=== PATIENT | female | born 1985 | race Hispanic/Latino ===

== ENCOUNTER 2018-09-08 11:43 | Emergency (ER) | payer SELFPAY ==
--- OUTSIDE RECORDS SUMMARY | 2018-09-08 11:45 | XMS REPORT ---
:1985 [facility] Organization [facility] Address [address] [place] [address] [address] [place] [address] Care Team Providers Name Role Phone Unavailable Unavailable Unavailable Problems This patient has no known problems. Allergies, Adverse Reactions, Alerts This patient has no known allergies or adverse reactions. Medications This patient has no known medications.
--- NOTE | 2018-09-08 13:06 | RAD REPORT ---
EXAM DESCRIPTION: US - Abdomen Exam Limited - 09/08/2018 12:57 pm COMPARISON: None. FINDINGS: No mobile gallstones identified. There is several small 5 mm or less echogenic foci adhere nt to the gallbladder wall. No posterior acoustic enhancement or shadowing. No comet tail artifacts s een. There is no wall thickening or pericholecystic fluid. No common duct stone or biliary tree dilatation identified. IMPRESSION: No gallstones confirmed. No acute gallbladder or biliary tree finding. Small 5 mm or less echogenic foci are believed to be small polyps.
[2018-09-08] MEDS ORDERED: FAMOTIDINE 20 MG/2 ML VIAL IV ONE (13:35)
[2018-09-08] MEDS ORDERED: NA CHLORIDE 0.9% 1,000 ML ONE (13:35)
[2018-09-08] MEDS ORDERED: KETOROLAC 30 MG/ML INJ ONE (13:35)
[2018-09-08] MEDS ORDERED: ONDANSETRON 4 MG/2 ML VIAL ONE (13:35)
[2018-09-08 13:42] LABS: Absolute Lymphocytes (CBC) 1.6 K/uL (0.7-4.9); Basophils % 0.4 % (0-1.3); Eosinophils % 0.3 % (0-4.4); Hematocrit 41.7 % (36.0-45.0); Lymphocytes % 13.5 % (15.3-44.8); MPV 8.6 fL (7.6-11.3); RBC Red Blood Cell Count 4.71 M/uL (3.86-4.86)
[2018-09-08 13:59] LABS: ALT/SGPT 80 U/L (12-78); AST/SGOT 70 U/L (15-37); Albumin 3.9 g/dL (3.4-5.0); Alkaline Phosphatase 311 U/L (45-117); BUN Blood Urea Nitrogen 6 mg/dL (7-18); Bicarbonate 27 mmol/L (21-32); Bilirubin Direct 0.2 mg/dL (0-0.2); Bilirubin Total 0.5 mg/dL (0.2-1.0); Glucose Level 91 mg/dL (74-106); Lipase 7918 U/L (73-393); Potassium 3.4 mmol/L (3.5-5.1); Protein, Total 9.3 g/dL (6.4-8.2); Sodium Level 137 mmol/L (136-145)
[2018-09-08 14:47] LABS: Urine Bacteria 20-50 /HPF (<20); Urine Culture Reflex Order REFLEXED; Urine RBC <5 /HPF (NONE SEEN)
[2018-09-08 14:49] LABS: Urine Blood TRACE (NEG); Urine Glucose NEGATIVE (NEG); Urine Protein 1+ (NEG); Urine Specific Gravity 1.015 (1.005-1.030); Urine pH 7.5 (5.0-7.0)
--- NOTE | 2018-09-08 15:29 | RAD REPORT ---
EXAM DESCRIPTION: CTAbdomen Pelvis W Contrast - 09/08/2018 3:21 pm CLINICAL HISTORY: Abdominal pain. ABD PAIN COMPARISON: No comparisonsAbdomen Exam Limited dated 09/08/2018 TECHNIQUE: Biphasic CT imaging of the abdomen and pelvis was performed with 100 ml non-ionic IV cont rast. All CT scans are performed using dose optimization technique as appropriate and may include automated exposure control or mA/KV adjustment according to patient size. FINDINGS: The lung bases are clear. The liver, spleen, pancreas, adrenal glands and kidneys are within normal limits. No bowel obstruction, free air, free fluid or abscess. The appendix is not identified as a discrete structure, however, no secondary findings of appendicitis are identified. No evidence of significan t lymphadenopathy. No suspicious bony findings. IMPRESSION: No acute intra-abdominal or pelvic finding.
--- NOTE | 2018-09-08 15:39 | EDPHYS ---
Physician Documentation [facility] Name: Gabby Aguilar Age: 33 yrs Sex: Female : 1985 Arrival Date: 09/08/2018 Time: 11:47 Bed 13 Private MD: ED Physician Efe Martinez HPI: 09/08 14:32 This 33 yrs old Female presents to ER via Ambulatory with complaints of kb Abdominal Pain. 14:32 The patient presents with abdominal pain that is diffuse. Onset: The symptoms/episode kb began/occurred 5 day(s) ago. The symptoms do not radiate. Associated signs and symptoms: Pertinent positives: nausea, vomiting, and diarrhea. The symptoms are described as constant. Modifying factors: The symptoms are alleviated by nothing, the symptoms are aggravated by nothing. Severity of pain: At its worst the pain was moderate in the emergency department the pain is unchanged. The patient has not experienced similar symptoms in the past. The patient has been recently seen by a physician: the patient's primary care provider, yesterday, with similar presenting complaints, and was sent to the [facility] Emergency Department for further evaluation. Pt reports she started having abd pain, n/v/d on Friday. Diarrhea stopped yesterday, but continues to have pain,n/v. Went to the clinic in [place] today and was told it was either her gallbladder or appendix so she needed to come to the ER. 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 - Social history:: Smoking status: Patient/guardian denies using tobacco. - Ebola Screening: : Patient denies travel to an Ebola-affected area in the 21 days before illness onset. ROS: 14:28 Constitutional: Negative for fever, chills, and weight loss, Cardiovascular: Negative kb for chest pain, palpitations, and edema, Respiratory: Negative for shortness of breath, cough, wheezing, and pleuritic chest pain, Back: Negative for injury and pain, : Negative for injury, bleeding, discharge, and swelling, MS/Extremity: Negative for injury and deformity, Skin: Negative for injury, rash, and discoloration, Neuro: Negative for headache, weakness, numbness, tingling, and seizure. 14:31 Abdomen/GI: Positive for abdominal pain, nausea, vomiting, and diarrhea. kb Exam: 14:27 Constitutional: This is a well developed, well nourished patient who is awake, alert, kb and in no acute distress. Head/Face: Normocephalic, atraumatic. Chest/axilla: Normal chest wall appearance and motion. Nontender with no deformity. No lesions are appreciated. Cardiovascular: Regular rate and rhythm with a normal S1 and S2. No gallops, murmurs, or rubs. Normal PMI, no JVD. No pulse deficits. Respiratory: Lungs have equal breath sounds bilaterally, clear to auscultation and percussion. No rales, rhonchi or wheezes noted. No increased work of breathing, no retractions or nasal flaring. Back: No spinal tenderness. No costovertebral tenderness. Full range of motion. Skin: Warm, dry with normal turgor. Normal color with no rashes, no lesions, and no evidence of cellulitis. MS/ Extremity: Pulses equal, no cyanosis. Neurovascular intact. Full, normal range of motion. Neuro: Awake and alert, GCS 15, oriented to person, place, time, and situation. Cranial nerves II-XII grossly intact. Motor strength 5/5 in all extremities. Sensory grossly intact. Cerebellar exam normal. Normal gait. 14:27 Abdomen/GI: Inspection: abdomen appears normal, Bowel sounds: normal, in all quadrants, Palpation: soft, in all quadrants, moderate abdominal tenderness, in the right upper quadrant, left upper quadrant, right lower quadrant and left lower quadrant. Vital Signs: 11:50 BP 160 / 90; Pulse 71; Resp 18; Temp 98.0; Pulse Ox 100% on R/A; Weight 95.25 kg (R); aj1 Height 5 ft. 3 in. (160.02 cm) (R); Pain 8/10; 13:30 BP 145 / 99; Pulse 49; Resp 18; Temp 97.8(TE); Pulse Ox 100% on R/A; mh5 14:21 BP 157 / 92; Pulse 61; Resp 18; Temp 97.8(TE); Pulse Ox 100% ; mh5 15:20 BP 168 / 99; Pulse 66; Resp 17; Temp 98.3(O); Pulse Ox 100% on R/A; Pain 0/10; rb1 16:00 BP 146 / 86; Pulse 57; Resp 16; Temp 98.1(O); Pulse Ox 98% on R/A; Pain 0/10; rb1 11:50 Body Mass Index 37.20 (95.25 kg, 160.02 cm) aj1 MDM: 13:00 Patient medically screened. kb 14:27 Data reviewed: vital signs, nurses notes. Data interpreted: Pulse oximetry: on room air kb is 100 %. Interpretation: normal. 15:34 Counseling: I had a detailed discussion with the patient and/or guardian regarding: the kb historical points, exam findings, and any diagnostic results supporting the discharge/admit diagnosis, lab results, radiology results, the need for outpatient follow up, a family practitioner, a telephone interviewer, to return to the emergency department if symptoms worsen or persist or if there are any questions or concerns that arise at home. ED course: Pt has no pain at this time. Able to tolerate PO intake. Comfortable with going home and will return if needed. Pt will follow up with GI. 09/08 13:08 Order name: Basic Metabolic Panel; Complete Time: 14:06 kb 09/08 13:08 Order name: CBC with Diff; Complete Time: 13:54 kb 09/08 13:08 Order name: Hepatic Function; Complete Time: 14:06 kb 09/08 13:08 Order name: Lipase; Complete Time: 14:06 kb 09/08 13:37 Order name: Urine Microscopic Only; Complete Time: 14:51 kb 09/08 13:45 Order name: Urine Dipstick--Ancillary (enter results); Complete Time: 14:51 ag 09/08 12:44 Order name: US Abdomen Limited; Complete Time: 13:08 kb 09/08 13:12 Order name: CT Abd/Pelvis - PO and IV Contrast; Complete Time: 15:31 kb 09/08 13:45 Order name: Urine --Ancillary (enter results); Complete Time: 14:51 ag 09/08 14:50 Order name: Urine Culture EDMS 09/08 13:08 Order name: IV Saline Lock; Complete Time: 13:48 kb 09/08 13:08 Order name: Labs collected and sent; Complete Time: 13:48 kb 09/08 13:13 Order name: Urine Test (obtain specimen); Complete Time: 13:45 kb 09/08 13:13 Order name: Urine Dipstick-Ancillary (obtain specimen); Complete Time: 13:45 kb Administered Medications: 13:30 Drug: NS 0.9% 1000 ml Route: IV; Rate: 1000 ml; Site: right antecubital; rb1 14:38 Follow up: IV Status: Completed infusion rb1 13:30 Drug: Zofran 4 mg Route: IVP; Site: right antecubital; rb1 13:45 Follow up: Response: No adverse reaction; Nausea is decreased rb1 13:30 Drug: TORadol 30 mg Route: IVP; Site: right antecubital; rb1 13:45 Follow up: Response: No adverse reaction; Pain is decreased rb1 13:30 Drug: Pepcid 20 mg Route: IVP; Site: right antecubital; rb1 13:45 Follow up: Response: No adverse reaction rb1 Disposition: 17:10 Co-signature as Attending Physician, Efe Martinez MD. rn Disposition: 09/08/18 15:38 Discharged to Home. Impression: Acute pancreatitis, unspecified. - Condition is Stable. - Discharge Instructions: Acute Pancreatitis, [id number]. - Prescriptions for Tylenol- Codeine #3 300-30 mg Oral Tablet - take 1 tablet by ORAL route every 6 hours As needed; 15 tablet. Zofran 4 mg Oral Tablet - take 1 tablet by ORAL route every 6 hours As needed; 20 tablet. - Medication Reconciliation Form, Thank You Letter, Antibiotic Education, Prescription Opioid Use, Work release form form. - Follow up: Emergency Department; When: As needed; Reason: Worsening of condition. Follow up: Private Physician; When: 2 - 3 days; Reason: Recheck today's complaints, Continuance of care, Re-evaluation by your physician. Signatures: Dispatcher [employer] Ericka Velasco, YARA-C COLLEGE SCOUTING COORDINATOR-CkKrysta Manuel RN RN aj1 Efe Martinez MD MD rn Barber, Rebecca, RN RN rb1 Corrections: (The following items were deleted from the chart) 14:32 14:28 Constitutional: Negative for fever, chills, and weight loss, Cardiovascular: kb Negative for chest pain, palpitations, and edema, Respiratory: Negative for shortness of breath, cough, wheezing, and pleuritic chest pain, kb 16:14 15:38 09/08/2018 15:38 Discharged to Home. Impression: Acute pancreatitis, unspecified. rb1 Condition is Stable. Forms are Medication Reconciliation Form, Thank You Letter, Antibiotic Education, Prescription Opioid Use. Follow up: Emergency Department; When: As needed; Reason: Worsening of condition. Follow up: Private Physician; When: 2 - 3 days; Reason: Recheck today's complaints, Continuance of care, Re-evaluation by your physician. kb
--- NOTE | 2018-09-08 15:39 | ER ---
Nurse's Notes [facility] Name: Gabby Aguilar Age: 33 yrs Sex: Female : 1985 Arrival Date: 09/08/2018 Time: 11:47 Bed 13 Private MD: Diagnosis: Acute pancreatitis, unspecified Presentation: 09/08 11:48 Presenting complaint: Patient states: Epigastric pain since yesterday that's worse when aj1 she eats. Reports N/V. Denies diarrhea. Transition of care: patient was not received from another setting of care. Onset of symptoms was September 07, 2018. Risk Assessment: Do you want to hurt yourself or someone else? Patient reports no desire to harm self or others. Initial Sepsis Screen: Does the patient meet any 2 criteria? No. Patient's initial sepsis screen is negative. Does the patient have a suspected source of infection? Yes: Acute abdominal pain. Care prior to arrival: None. 11:48 Method Of Arrival: Ambulatory aj1 11:48 Acuity: MIKEL 3 aj1 Triage Assessment: 11:50 General: Appears in no apparent distress. uncomfortable, Behavior is calm, cooperative, aj1 appropriate for age. Pain: Complains of pain in epigastric area Pain currently is 8 out of 10 on a pain scale. Neuro: Level of Consciousness is awake, alert, obeys commands. Cardiovascular: Patient's skin is warm and dry. Respiratory: Airway is patent Respiratory effort is even, unlabored, Respiratory pattern is regular, symmetrical. GI: Reports upper abdominal pain. 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 - Social history:: Smoking status: Patient/guardian denies using tobacco. - Ebola Screening: : Patient denies travel to an Ebola-affected area in the 21 days before illness onset. Screenin:00 Abuse screen: Denies threats or abuse. Nutritional screening: No deficits noted. rb1 Tuberculosis screening: No symptoms or risk factors identified. Fall Risk None identified. Assessment: 13:00 General: Appears uncomfortable, Behavior is calm, cooperative. Pain: Complains of pain rb1 in abdomen Pain currently is 8 out of 10 on a pain scale. Neuro: Level of Consciousness is awake, alert, obeys commands, Oriented to person, place, time, situation. Cardiovascular: Capillary refill < 3 seconds is brisk in bilateral fingers. Respiratory: Airway is patent Respiratory effort is even, unlabored, Respiratory pattern is regular, symmetrical. Derm: Skin is pink, warm \T\ dry. 13:00 GI: Bowel sounds present X 4 quads. Abd is soft Reports nausea, vomiting. : No signs rb1 and/or symptoms were reported regarding the genitourinary system. Musculoskeletal: Range of motion: intact in all extremities. 14:00 Reassessment: Patient appears in no apparent distress at this time. Patient and/or rb1 family updated on plan of care and expected duration. Pain level reassessed. Patient is alert, oriented x 3, equal unlabored respirations, skin warm/dry/pink. 15:00 Reassessment: Patient appears in no apparent distress at this time. Pt. resting with rb1 eyes, closed. Respirations even, unlabored. Call light within reach. 15:43 Reassessment: Patient appears in no apparent distress at this time. Patient and/or rb1 family updated on plan of care and expected duration. Pain level reassessed. Patient is alert, oriented x 3, equal unlabored respirations, skin warm/dry/pink. Pt. requested that the lights be turned off so she can sleep. Vital Signs: 11:50 BP 160 / 90; Pulse 71; Resp 18; Temp 98.0; Pulse Ox 100% on R/A; Weight 95.25 kg (R); aj1 Height 5 ft. 3 in. (160.02 cm) (R); Pain 8/10; 13:30 BP 145 / 99; Pulse 49; Resp 18; Temp 97.8(TE); Pulse Ox 100% on R/A; mh5 14:21 BP 157 / 92; Pulse 61; Resp 18; Temp 97.8(TE); Pulse Ox 100% ; mh5 15:20 BP 168 / 99; Pulse 66; Resp 17; Temp 98.3(O); Pulse Ox 100% on R/A; Pain 0/10; rb1 16:00 BP 146 / 86; Pulse 57; Resp 16; Temp 98.1(O); Pulse Ox 98% on R/A; Pain 0/10; rb1 11:50 Body Mass Index 37.20 (95.25 kg, 160.02 cm) aj1 ED Course: 11:47 Patient arrived in ED. mr 11:50 Triage completed. aj1 11:50 Arm band placed on Patient placed in waiting room, Patient notified of wait time. aj1 12:00 [facility]C [facility]. kb 12:00 Efe Martinez MD is Attending Physician. kb 13:00 Patient has correct armband on for positive identification. Placed in gown. Bed in low rb1 position. Call light in reach. Side rails up X 1. Pulse ox on. NIBP on. Warm blanket given. 13:01 Alda Lomeli, KIRT is Primary Nurse. rb1 13:04 US Abdomen Limited In Process Unspecified. EDMS 13:25 Inserted saline lock: 18 gauge in right antecubital area, using aseptic technique. rb1 ,using aseptic technique. Inserted by KIRT Tirado. Blood collected. 15:21 CT Abd/Pelvis - PO and IV Contrast In Process Unspecified. EDMS 16:14 No provider procedures requiring assistance completed. IV discontinued, intact, rb1 bleeding controlled, No redness/swelling at site. Pressure dressing applied. Administered Medications: 13:30 Drug: NS 0.9% 1000 ml Route: IV; Rate: 1000 ml; Site: right antecubital; rb1 14:38 Follow up: IV Status: Completed infusion rb1 13:30 Drug: Zofran 4 mg Route: IVP; Site: right antecubital; rb1 13:45 Follow up: Response: No adverse reaction; Nausea is decreased rb1 13:30 Drug: TORadol 30 mg Route: IVP; Site: right antecubital; rb1 13:45 Follow up: Response: No adverse reaction; Pain is decreased rb1 13:30 Drug: Pepcid 20 mg Route: IVP; Site: right antecubital; rb1 13:45 Follow up: Response: No adverse reaction rb1 Outcome: 15:38 Discharge ordered by . kb 16:14 Patient left the ED. rb1 16:14 Discharged to home ambulatory. rb1 16:14 Condition: stable 16:14 Discharge instructions given to patient, Instructed on discharge instructions, follow up and referral plans. medication usage, Demonstrated understanding of instructions, follow-up care, medications, Prescriptions given X 2. Signatures: Dispatcher [employer] Ericka Velasco, YARA-C YARA-Krytsa Gibbs RN RN aj1 Candice Israel Rebecca, RN RN rb1 Megan Barnard [facility]
== END 2018-09-08 16:14 | disposition home or self-care (01) ==
LOC: ER 11:43
DX: K85.90 Acute pancreatitis without necrosis or infection, unspecified (principal)
CPT/HCPCS: 36415; 74177; 76705; 80048; 80076; 81003; 81015; 81025; 83690; 85025; 87086; 87088; 96361; 96374; 96375; 99284; J2405; J7030; Q9967

== ENCOUNTER 2018-10-20 19:54 | Emergency (ER) | payer SELFPAY ==
--- OUTSIDE RECORDS SUMMARY | 2018-10-20 19:55 | XMS REPORT | Summary of Care ---
:1985 Author Organization [facility] - Health Address [address] [place] [address] Care Team Providers Name Role Phone Radu Lezama Primary Care Provider Encounter Details Date Type Department Care Team Description 10/19/2018 Orders Only [facility] Doctor Unassigned, No [address] [facility] [place] Name [place] [id number] [address] [place] [phone] Allergies No Known Allergiesdocumented as of this encounter (statuses as of 10/19/2018) Medications Medication Sig Dispensed Refills Start Date End Date Status norgestimate-ethinyl Take 1 tablet by 1 Package 2 06/16/2018 Active estradiol (ORTHO mouth daily. TRI-CYCLEN, 28,) 0.18/0.215/0.25 mg-35 mcg (28) tabletIndications: Encounter for other contraceptive management documented as of this encounter (statuses as of 10/19/2018) Active Problems Problem Noted Date Vaginal irritation 07/30/2018 Well woman exam 06/16/2018 Irregular menses 06/16/2018 Amenorrhea, secondary 12/29/2014 Overview: TSH, Prolactin normal: Obese 01/05/2015- Provera challenge and BBT chart Morbid obesity 08/11/2014 documented as of this encounter (statuses as of 10/19/2018) Resolved Problems Problem Noted Date Resolved Date Encounter for routine gynecological examination 08/11/2014 06/16/2018 Overview: ICD10 Diagnosis Term Nurse Transitional Utility Screening for STD (sexually transmitted disease) 08/11/2014 06/16/2018 Family planning counseling 08/11/2014 12/29/2014 Need for Tdap vaccination 08/11/2014 06/16/2018 Tobacco use disorder 08/11/2014 12/29/2014 documented as of this encounter (statuses as of 10/19/2018) Immunizations Name Administration Dates Next Due Tdap 08/11/2014 documented as of this encounter Social History Tobacco Use Types Packs/Day Years Used Date Former Smoker Quit: 08/11/2014 Smokeless Tobacco: Never Used Comments: social smoker Alcohol Use Drinks/Week oz/Week Comments Yes 0 Standard drinks or equivalent 0.0 socially Sex Assigned at Date Recorded Not on file Job Start Date Occupation Industry Not on file Not on file Not on file Travel History Travel Start Travel End No recent travel history available. documented as of this encounter Last Filed Vital Signs Not on filedocumented in this encounter Plan of Treatment Health Maintenance Due Date Last Done Comments VARICELLA VACCINES (1 of 2 - 07/21/2000 13+ 2-dose series) INFLUENZA VACCINE 11/15/2018 PAP SMEAR 06/16/2021 06/16/2018, 08/11/2014 DTaP,Tdap,and Td Vaccines (2 08/11/2024 08/11/2014 - Td) PNEUMOCOCCAL 0-64 YEARS Aged Out No longer eligible based COMBINED SERIES on patient's age to complete this topic documented as of this encounter Procedures Procedure Name Priority Date/Time Associated Diagnosis Comments NO SHOW OR MISSED Routine 10/19/2018 2:40 PM APPOINTMENT POLICY CDT ACKNOWLEDGEMENT documented in this encounter Results Not on filedocumented in this encounter Insurance Payer Benefit Plan Subscriber ID Effective Phone Address Type / Group Dates [facility] xxxxxxxxx 2018-Kana [phone] Medicaid WOMEN [address] [place] [address] documented as of this encounter Advance Directives Name Relationship Healthcare Agent Relationship Communication Sakshi Arriola Sibling Primary healthcare agent
--- OUTSIDE RECORDS SUMMARY | 2018-10-20 19:55 | XMS REPORT ---
:1985 [facility] Address [address] [place] [address] Care Team Providers Name Role Phone Unavailable Unavailable Unavailable Problems This patient has no known problems. Allergies, Adverse Reactions, Alerts This patient has no known allergies or adverse reactions. Medications This patient has no known medications.
--- OUTSIDE RECORDS SUMMARY | 2018-10-20 19:56 | XMS REPORT | Summary of Care ---
:1985 Author Organization [facility] Address [address] [place] [address] Care Team Providers Name Role Phone Radu Lezama Primary Care Provider Reason for Visit Reason Comments New OB Visit Encounter Details Date Type Department Care Team Description 10/19/2018 Initial [facility] RMP- Edie Hobbs High risk , antepartum (Primary Dx); Visit YARA Gonzalez BMI 36.0-36.9,adult; [address] Obesity affecting in first trimester; [place], [place] Shaun A Elevated blood pressure reading without diagnosis of hypertension; [address] [place], [place] Cramping affecting , antepartum [phone] Allergies No Known Allergiesdocumented as of this encounter (statuses as of 10/19/2018) Medications Medication Sig Dispensed Refills Start Date End Date Status norgestimate-ethinyl Take 1 tablet 1 Package 2 06/16/2018 10/19/2018 Discontinued estradiol (ORTHO by mouth TRI-CYCLEN, 28,) daily. 0.18/0.215/0.25 mg-35 mcg (28) tabletIndications: Encounter for other contraceptive management documented as of this encounter (statuses as of 10/19/2018) Active Problems Problem Noted Date High risk , antepartum 10/19/2018 Obesity affecting in first trimester 10/19/2018 Elevated blood pressure reading without diagnosis of hypertension 10/19/2018 Cramping affecting , antepartum 10/19/2018 Irregular menses 06/16/2018 Morbid obesity 08/11/2014 Estimated Date of Delivery Comments Yes 06/22/2019 Based on last menstrual period of 09/15/2018 (Exact Date) documented as of this encounter (statuses as of 10/19/2018) Resolved Problems Problem Noted Date Resolved Date Vaginal irritation 07/30/2018 10/19/2018 Well woman exam 06/16/2018 10/19/2018 Amenorrhea, secondary 12/29/2014 10/19/2018 Overview: TSH, Prolactin normal: Obese 01/05/2015- Provera challenge and BBT chart Encounter for routine gynecological examination 08/11/2014 06/16/2018 Overview: ICD10 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 Never 10/19/2018 How many drinks containing alcohol do you have on a typical Not asked day when you are drinking? How often do you have six or more drinks on one occasion? Not asked Estimated Date of Delivery Comments Yes 06/22/2019 Based on last menstrual period of 09/15/2018 (Exact Date) Sex Assigned at Date Recorded Not on file Job Start Date Occupation Industry Not on file Not on file Not on file Travel History Travel Start Travel End No recent travel history available. documented as of this encounter Last Filed Vital Signs Vital Sign Reading Time Taken Comments Blood Pressure 127/86 10/19/2018 3:20 PM CDT Pulse 78 10/19/2018 3:19 PM CDT Temperature 36.8 C (98.2 F) 10/19/2018 3:19 PM CDT Respiratory Rate 16 10/19/2018 3:19 PM CDT Oxygen Saturation - - Inhaled Oxygen Concentration - - Weight 94.5 kg (208 lb 4 oz) 10/19/2018 3:19 PM CDT Height 160 cm (5' 3") 10/19/2018 3:19 PM CDT Body Mass Index 36.89 10/19/2018 3:19 PM CDT documented in this encounter Progress Notes Edie Hobbs, STAFF NURSE MIDWIFE - 10/19/2018 2:30 PM CDT Chief complaint: Chief Complaint Patient presents with New OB Visit CC: Initial Visit Gabby Aguilar is a 33 year old, , /White female. Patient 's last menstrual period was 09/15/2018 (exact date). She is 4w6d with a suspected intrauterine . Her Estimated Date of Delivery: 06/22/19. She is being seen today for her first obstetrical visit. She has no complaints today. She is experiencing some mild cramping that comes and goes. She denies vaginal bleeding, nausea or vomiting. Denies current physical, emotional or sexual abuse. Patient denies recent foreign travel. OB History T0 L0 SAB0 TAB0 Ectopic0 Multiple0 Live Births0 Name of Baby 1: Not recorded Date: Not recorded GA: Not recorded Delivery: Not recorded Apgar1: Not recorded Apgar5: Not recorded Living: Not recorded Histories OB History Para Term AB Living 1 0 0 0 0 0 SAB TAB Ectopic Multiple Live Births 0 0 0 0 # Outcome Date GA Lbr David/2nd Weight Sex Delivery Anes PTL Lv 1 Current Past Medical History: Diagnosis Date Irregular menses 06/16/2018 Menstrual disorder irregular menses Other nonspecific abnormal finding 2011 STD (sexually transmitted disease) 2011 chlamydia, treated Family History Problem Relation Age of Onset Hypertension Father Diabetes Maternal Aunt Diabetes Mother No Significant Medical Problems Sister Diabetes Brother Diabetes Maternal Uncle No Significant Medical Problems Paternal Aunt Hypertension Paternal Uncle Heart Maternal Grandmother Heart Maternal Grandfather Hypertension Paternal Grandmother Arthritis Paternal Grandmother Asthma NoFHx defects NoFHx Breast Cancer NoFHx Colon Cancer NoFHx Ovarian Cancer NoFHx Uterine Cancer NoFHx Cancer NoFHx Depression NoFHx Genetic NoFHx High cholesterol NoFHx Mental retardation NoFHx Neurological NoFHx Osteoporosis NoFHx Psychiatry NoFHx Family Status Relation Name Status Fa Alive MAunt Alive Mo Alive Sis Alive Bro Alive MUnc Alive PAunt Alive PUnc Alive MGMo MGFa PGMo Alive PGFa NoFHx (Not Specified) History reviewed. No pertinent surgical history. Social History Socioeconomic History Marital status: Spouse name: Not on file Number of children: Not on file Years of education: Not on file Highest education level: Not on file Occupational History Not on file Social Needs Financial resource strain: Not on file Food insecurity: Worry: Not on file Inability: Not on file Transportation needs: Medical: Not on file Non-medical: Not on file Tobacco Use Smoking status: Former Smoker Last attempt to quit: 08/11/2014 Years since quittin.1 Smokeless tobacco: Never Used Tobacco comment: social smoker Substance and Sexual Activity Alcohol use: Not Currently Alcohol/week: 0.0 oz Frequency: Never Comment: socially Drug use: No Sexual activity: Yes Partners: Male control/protection: None Comment: last sexual intercourse 10/18/2018 Lifestyle Physical activity: Days per week: Not on file Minutes per session: Not on file Stress: Not on file Relationships Social connections: Talks on phone: Not on file Gets together: Not on file Attends rastafarian service: Not on file Active member of club or organization: Not on file Attends meetings of clubs or organizations: Not on file Relationship status: Not on file Intimate partner violence: Fear of current or ex partner: Not on file Emotionally abused: Not on file Physically abused: Not on file Forced sexual activity: Not on file Other Topics Concern Not on file Social History Narrative Mu-Ism preference none. Patient lives alone. Patient has 1 dog. Social History Substance and Sexual Activity Sexual Activity Yes Partners: Male control/protection: None Comment: last sexual intercourse 10/18/2018 Genetic Screen Autism / Mental Retardation: No Kana Disease: No Congenital Heart Defect: No Cystic Fibrosis: No Down Syndrome: No Familial Dysautonomia: No Hemophilia or other Blood Disorders: No [place] Chorea: No Maternal Metabolic Disorder--specify (eg. Type 1 Diabetes, PKU): No Muscular Dystrophy: No Neural Tube Defect: No Recurrent Loss or a Stillbirth: No Sickle Cell Disease or Trait: No Cruz Sachs: No Teratological Substances (specify type & strength/dose) since LMP: No Thalassemia: No Other Inherited Genetic or Chromosomal Disorder (specify): No No Significant History of Genetic Disorders: No Significant History of Genetic Disorders Labs I have reviewed the patient's labs. and Labs are pending. Radiology Radiology pending. Allergies Gabby has No Known Allergies. Medications Gabby currently has no medications in their medication list. Review of Systems Constitutional: Negative. Negative for appetite change, fatigue and fever. HENT: Negative. Eyes: Negative. Negative for visual disturbance. Respiratory: Negative. Breasts: Negative. Cardiovascular: Negative. Negative for palpitations and leg swelling. Gastrointestinal: Negative. Negative for abdominal pain, constipation, diarrhea , nausea and vomiting. Genitourinary: Negative. Negative for dysuria, vaginal bleeding, vaginal discharge and pelvic pain. Musculoskeletal: Negative. Skin: Negative. Negative for rash. Neurological: Negative. Negative for dizziness, light-headedness and headaches. Psychiatric/Behavioral: Negative. Endocrine: Endocrine negative BP 127/86 (BP Location: Left arm, Patient Position: Sitting, BP CUFF SIZE: Adult Large) | Pulse 78| Temp 36.8 C (98.2 F) (Oral) | Resp 16 | Ht 5' 3 " (1.6 m) | Wt 208 lb 4 oz (94.5 kg) | LMP 09/15/2018 (Exact Date) | BMI 36.89 kg/m Pregravid BMI: 36.3 Physical Exam Vitals reviewed. Constitutional: She is oriented to person, place, and time. She appears well- developed and well-nourished. Her body habitus is obese. See flowsheet Neck: No thyroid nodules and no thyromegaly palpated. Cardiovascular: Regular rate and rhythm. No murmur auscultated. No peripheral edema present. Pulmonary/Chest: Breath sounds clear to auscultation. Normal inspiratory effort. Abdominal: Abdomen is soft. No mass palpated. No tenderness present. There is no hepatosplenomegaly. Neuro/Psychiatric: She has a normal mood and affect. She is oriented to person, place, and time. Skin: Skin normal. No lesion and no rash present. Genitourinary Comments: Patient friend remains in room during physical exam per patient preference Breast: Right breast exhibits no mass, no nipple discharge and no tenderness. Left breast exhibits no mass, no nipple discharge and no tenderness. Normal left breast and normal right breast External genitalia: Normal external genitalia appropriate for age. No labial lesion. Bladder: No tenderness. Normal bladder Vagina:Normal vagina. No lesion inspected. No abnormal vaginal discharge found. Cervix: Normal cervix. No lesion. No tenderness and no discharge present. Uterus: Uterus is normal size, normal position and non-tender. Normal uterus Adnexa: Right adnexa without tenderness. Left adnexa without tenderness. Normal left adnexa and normal right adnexa PHYSICAL: General Exam: HEENT: Normal Thyroid: Normal Lymph Node: Normal Neurological: Normal Heart: Normal Lungs: Normal Breasts: Normal Abdomen: Normal Skin: Normal Extremities: Normal Pelvic Exam: Vulva: Normal Vagina: Normal Cervix: Normal SVE closed/thick/high Membrane status: Intact Uterus: 4 Weeks Adnexa: Normal Rectum: Normal Spines: Average Subpubic Arch: Normal Assessment/Plan 1. High risk , antepartum 4w6d TWG discussed Discussed use of Deet Repellent Initiate Vitamins Increase Fluid Intake. Minimum of 8 water bottles daily. Will order dating US when insurance active - POCT TEST - POCT URINALYSIS W/O SPECIFIC GRAVITY - GLUCOSE 1 HOUR POST PRANDIAL - CBC WITH DIFF - GC & CHLAMYDIA AMPLIFIED ASSAY - HEPATITIS B SURFACE ANTIGEN - HIV 1/2 AG-AB WITH REFLEX - WORKUP, BLOOD BANK - RUBELLA SCREEN (KEEGAN) IGG - GALV ONLY - SYPHILIS IGG/IGM - URINE CULTURE - VZV ANTIBODY SCREEN - POCT URINALYSIS W/O SPECIFIC GRAVITY; Standing - CBC WITH DIFFERENTIAL 2. BMI 36.0-36.9,adult The patient is asked to make an attempt to improve diet and exercise patterns to aid in medical management of this problem. 3. Obesity affecting in first trimester The patient is asked to make an attempt to improve diet and exercise patterns to aid in medical management of this problem. 4. Elevated blood pressure reading without diagnosis of hypertension BP today 146/96 with recheck 127/86 On reviewed of flowsheet, has BPs in past in 140/80s Will do baseline PIH labs - COMP. METABOLIC PANEL (53522) - CREATININE U 24 HR; Future - PROTEIN QUANT U/24H; Future 5. Cramping affecting , antepartum Relief measures reviewed ER warnings for severe pain or bleeding. Return to clinic in 4 weeks. Reviewed patient instructions and provided printed copy. at 4w6d This visit did not involve counseling and coordination that comprised more than 50% of the visit time. Belia vivar LVN - 10/19/2018 2:30 PM CDTPatient is 33 year old female here for current . Patient is . 1) Previous delivery methods N/a 2) Patient is experiencing moderate to sever cramping 3) Patient is not experiencing bleeding. 4) LMP 09/15/2018 5) Last Pap was:06/16/2018 Results: abnormal 6) Have you had a flu vaccine this season? no 7) PPD candidate?no 8) Patient complains none 9) Patient denies history of physical, emotional, or sexual abuse. Patient states she currently feels safe at home. NOB packet given and reviewed with patient. documented in this encounter Plan of Treatment Date Type Specialty Care Team Description 11/17/2018 Routine Visit OB Satellites Edie Hobbs FNP [address] [place] [address] [phone] Name Type Priority Associated Diagnoses Date/Time GC & CHLAMYDIA AMPLIFIED LAB Routine High risk , 10/19/2018 3:41 PM CDT ASSAY antepartum URINE CULTURE LAB Routine High risk , 10/19/2018 3:41 PM CDT antepartum Name Type Priority Associated Diagnoses Order Schedule GLUCOSE 1 HOUR POST LAB Routine High risk , Ordered: 10/19/2018 PRANDIAL antepartum CBC WITH DIFF LAB Routine High risk , Ordered: 10/19/2018 antepartum HEPATITIS B SURFACE LAB Routine High risk , Ordered: 10/19/2018 ANTIGEN antepartum HIV 1/2 AG-AB WITH LAB Routine High risk , Ordered: 10/19/2018 REFLEX antepartum WORKUP, BLOOD LAB Routine High risk , Ordered: 10/19/2018 BANK antepartum RUBELLA SCREEN (KEEGAN) LAB Routine High risk , Ordered: 10/19/2018 IGG antepartum GALV ONLY - SYPHILIS LAB Routine High risk , Ordered: 10/19/2018 IGG/IGM antepartum VZV ANTIBODY SCREEN LAB Routine High risk , Ordered: 10/19/2018 antepartum COMP. METABOLIC PANEL LAB Routine Elevated blood pressure Ordered: 2018 (83499) reading without diagnosis of hypertension POCT URINALYSIS W/O LAB Routine High risk , 20 Occurrences starting SPECIFIC GRAVITY antepartum 10/19/2018 until 10/20/2019 CBC WITH DIFFERENTIAL LAB Routine High risk , Ordered: 10/19/2018 antepartum CREATININE U 24 HR LAB Routine Elevated blood pressure 1 Occurrences starting reading without 10/19/2018 until diagnosis of 12/19/2018 hypertension PROTEIN QUANT U/24H LAB Routine Elevated blood pressure 1 Occurrences starting reading without 10/19/2018 until diagnosis of 12/19/2018 hypertension Health Maintenance Due Date Last Done Comments INFLUENZA VACCINE 11/15/2018 PAP SMEAR 06/16/2021 06/16/2018, 08/11/2014 DTaP,Tdap,and Td Vaccines (2 08/11/2024 08/11/2014 - Td) PNEUMOCOCCAL 0-64 YEARS Aged Out No longer eligible based COMBINED SERIES on patient's age to complete this topic VARICELLA VACCINES Discontinued documented as of this encounter Procedures Procedure Name Priority Date/Time Associated Comments Diagnosis POCT URINALYSIS W/O Routine 10/19/2018 3:21 PM High risk Results for this SPECIFIC GRAVITY CDT , procedure are in antepartum the results section. POCT TEST Routine 10/19/2018 3:21 PM High risk Results for this CDT , procedure are in antepartum the results section. documented in this encounter Results POCT URINALYSIS W/O SPECIFIC GRAVITY (10/19/2018 3:21 PM CDT) POCT PH U 6 5 - 8 mg/dl POCT U LEUK EST neg Negative - Negative POCT U NIT neg Negative - Negative POCT U PROT neg Negative - Negative POCT U GLU neg Negative - Negative POCT U KETONE neg Negative - Negative POCT U BLD neg Negative - Negative Specimen Urine - URINE, CLEAN CATCH POCT TEST (10/19/2018 3:21 PM CDT) POCT PREG Positive On board controls acceptable Yes with C Line POCT PREG LOT # POCT PREG TEST DATE Specimen Urine - URINE, CLEAN CATCH documented in this encounter Visit Diagnoses Diagnosis High risk , antepartum - Primary BMI 36.0-36.9,adult Body Mass Index 36.0-36.9, adult Obesity affecting in first trimester Elevated blood pressure reading without diagnosis of hypertension Cramping affecting , antepartum documented in this encounter Insurance Payer Benefit Plan / Subscriber ID Effective Phone Address Type Group Dates MEDICAID MEDICAID PENDING 2018-[address] Pending [place] [address] documented as of this encounter Advance Directives Name Relationship Healthcare Agent Relationship Communication Sakshi Flako Sibling Primary healthcare agent
--- OUTSIDE RECORDS SUMMARY | 2018-10-20 19:56 | XMS REPORT | Summary of Care ---
:1985 Author Organization [facility] Address [address] [place] [address] Care Team Providers Name Role Phone Radu Lezama Primary Care Provider Reason for Visit Reason Comments New OB Visit Encounter Details Date Type Department Care Team Description 10/19/2018 Initial [facility] RMP- Edie Hobbs High risk , antepartum (Primary Dx); Visit YARA Gonzalez BMI 36.0-36.9,adult; [address] Obesity affecting in first trimester; [place], [place] Shaun A Elevated blood pressure reading without diagnosis of hypertension; [id number] [place], [place] Cramping affecting , antepartum [phone] [address] Allergies No Known Allergiesdocumented as of [...] examination 08/11/2014 06/16/2018 Overview: ICD10 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 Patient lives alone. Patient has 1 dog. Social History Substance and Sexual Activity Sexual Activity Yes Partners: Male control/protection: None Comment: last sexual intercourse 10/18/2018 Genetic Screen Autism / Mental Retardation: No Kana Disease: No Congenital Heart Defect: No Cystic Fibrosis: No Down Syndrome: No Familial Dysautonomia: No Hemophilia or other Blood Disorders: No [place] Chorea: No Maternal Metabolic Disorder--specify (eg. Type [...] baseline PIH labs - COMP. METABOLIC PANEL (09391) - CREATININE U 24 HR; Future - [...] OB Satellites Edie Hobbs FNP [address] [place] [address] [phone] Name Type Priority Associated Diagnoses Date/Time GLUCOSE 1 HOUR POST LAB Routine High risk , 10/19/2018 4:16 PM PRANDIAL antepartum CDT CBC WITH DIFF LAB Routine High risk , 10/19/2018 4:16 PM antepartum CDT GC & CHLAMYDIA AMPLIFIED LAB Routine High risk , 10/19/2018 3:41 PM ASSAY antepartum CDT HEPATITIS B SURFACE LAB Routine High risk , 10/19/2018 4:16 PM ANTIGEN antepartum CDT HIV 1/2 AG-AB WITH REFLEX LAB Routine High risk , 10/19/2018 4: 16 PM antepartum CDT RUBELLA SCREEN (KEEGAN) LAB Routine High risk , 10/19/2018 4:16 PM IGG antepartum CDT GALV ONLY - SYPHILIS LAB Routine High risk , 10/19/2018 4:26 PM IGG/IGM antepartum CDT URINE CULTURE LAB Routine High risk , 10/19/2018 3:41 PM antepartum CDT VZV ANTIBODY SCREEN LAB Routine High risk , 10/19/2018 4:16 PM antepartum CDT COMP. METABOLIC PANEL LAB Routine Elevated blood pressure 10/19/2018 4:16 PM (27402) reading without diagnosis CDT of hypertension CBC WITH DIFFERENTIAL LAB Routine High risk , 10/19/2018 4:16 PM antepartum CDT Name Type Priority Associated Diagnoses Order Schedule WORKUP, BLOOD LAB Routine High risk , Ordered: 10/19/2018 BANK antepartum POCT URINALYSIS W/O LAB Routine High risk , 20 Occurrences starting SPECIFIC GRAVITY antepartum 10/19/2018 until 10/20/2019 CREATININE U 24 HR LAB Routine Elevated blood pressure 1 Occurrences starting reading without diagnosis 10/19/2018 until of hypertension 12/19/2018 PROTEIN QUANT U/24H LAB Routine Elevated blood pressure 1 Occurrences starting reading without diagnosis 10/19/2018 until of hypertension 12/19/2018 Health Maintenance Due Date Last Done Comments [...] Address Type Group Dates MEDICAID MEDICAID PENDING 2018-[address] [place] [address] documented as of this encounter Advance Directives Name Relationship Healthcare Agent Relationship Communication Sakshi Arriola Sibling Primary healthcare agent
[2018-10-20 21:17] LABS: Absolute Lymphocytes (CBC) 2.2 K/uL (0.7-4.9); Basophils % 0.4 % (0-1.3); Hematocrit 39.1 % (36.0-45.0); Lymphocytes % 16.1 % (15.3-44.8); MPV 8.3 fL (7.6-11.3); RBC Red Blood Cell Count 4.44 M/uL (3.86-4.86)
[2018-10-20 21:34] LABS: BUN Blood Urea Nitrogen 6 mg/dL (7-18); Bicarbonate 27 mmol/L (21-32); Glucose Level 102 mg/dL (74-106); HCG, Quantitative 17 mIU/mL (1-3); Potassium 3.6 mmol/L (3.5-5.1); Sodium Level 140 mmol/L (136-145)
[2018-10-20 21:41] LABS: Urine Blood 1+ (NEG); Urine Glucose NEGATIVE (NEG); Urine Protein NEGATIVE (NEG)
--- NOTE | 2018-10-20 22:11 | EDPHYS ---
Physician Documentation [facility] Name: Gabby Aguilar Age: 33 yrs Sex: Female : 1985 Arrival Date: 10/20/2018 Time: 19:56 Bed 13 Private MD: ED Physician Efe Martinez HPI: 10/20 22:08 This 33 yrs old Female presents to ER via Ambulatory with complaints of kb Abdominal Cramping, 5 WEEKS PREGANT. 22:08 The patient presents to the emergency department with vaginal bleeding, that is light. kb The estimated gestational age is 5 weeks. course: care: none, Leakage of Fluid: none appreciated, Ultrasound: the patient has not had an ultrasound, Risk/complications: no obvious risks or complications are appreciated. Previous pregnancies: the patient has never been . Associated signs and symptoms: Pertinent positives: vaginal bleeding. The patient has not experienced similar symptoms in the past. The patient has not recently seen a physician. Pt reports spotting that started this morning. Had confirmed at clinic yesterday. 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 - Social history:: Smoking status: Patient/guardian denies using tobacco. - Ebola Screening: : Patient denies travel to an Ebola-affected area in the 21 days before illness onset. ROS: 22:08 Constitutional: Negative for fever, chills, and weight loss, Neck: Negative for injury, kb pain, and swelling, Cardiovascular: Negative for chest pain, palpitations, and edema, Respiratory: Negative for shortness of breath, cough, wheezing, and pleuritic chest pain, Abdomen/GI: Negative for abdominal pain, nausea, vomiting, diarrhea, and constipation, Back: Negative for injury and pain, MS/Extremity: Negative for injury and deformity, Skin: Negative for injury, rash, and discoloration, Neuro: Negative for headache, weakness, numbness, tingling, and seizure. 22:08 : Positive for vaginal bleeding. Exam: 22:08 Constitutional: This is a well developed, well nourished patient who is awake, alert, kb and in no acute distress. Head/Face: Normocephalic, atraumatic. ENT: Nares patent. No nasal discharge, no septal abnormalities noted. Tympanic membranes are normal and external auditory canals are clear. Oropharynx with no redness, swelling, or masses, exudates, or evidence of obstruction, uvula midline. Mucous membranes moist. Neck: Trachea midline, no thyromegaly or masses palpated, and no cervical lymphadenopathy. Supple, full range of motion without nuchal rigidity, or vertebral point tenderness. No Meningismus. Chest/axilla: Normal chest wall appearance and motion. Nontender with no deformity. No lesions are appreciated. Cardiovascular: Regular rate and rhythm with a normal S1 and S2. No gallops, murmurs, or rubs. Normal PMI, no JVD. No pulse deficits. Respiratory: Lungs have equal breath sounds bilaterally, clear to auscultation and percussion. No rales, rhonchi or wheezes noted. No increased work of breathing, no retractions or nasal flaring. Abdomen/GI: Soft, non-tender, with normal bowel sounds. No distension or tympany. No guarding or rebound. No evidence of tenderness throughout. Back: No spinal tenderness. No costovertebral tenderness. Full range of motion. Skin: Warm, dry with normal turgor. Normal color with no rashes, no lesions, and no evidence of cellulitis. MS/ Extremity: Pulses equal, no cyanosis. Neurovascular intact. Full, normal range of motion. Neuro: Awake and alert, GCS 15, oriented to person, place, time, and situation. Cranial nerves II-XII grossly intact. Motor strength 5/5 in all extremities. Sensory grossly intact. Cerebellar exam normal. Normal gait. Vital Signs: 20:06 BP 162 / 88; Pulse 69; Resp 18; Temp 98.2; Pulse Ox 100% on R/A; Weight 94.8 kg (R); aj1 Height 5 ft. 3 in. (160.02 cm) (R); Pain 7/10; 21:11 BP 143 / 90; Pulse 61; Resp 16; Pulse Ox 100% on R/A; Pain 0/10; aa1 22:24 BP 132 / 81; Pulse 82; Resp 16; Pulse Ox 100% on R/A; jb4 20:06 Body Mass Index 37.02 (94.80 kg, 160.02 cm) aj1 MDM: 20:09 Patient medically screened. kb 22:09 Data reviewed: vital signs, nurses notes. Data interpreted: Pulse oximetry: on room air kb is 100 %. Interpretation: normal. Counseling: I had a detailed discussion with the patient and/or guardian regarding: the historical points, exam findings, and any diagnostic results supporting the discharge/admit diagnosis, lab results, radiology results, the need for outpatient follow up, an OB/Gyne specialist, to return to the emergency department if symptoms worsen or persist or if there are any questions or concerns that arise at home. 10/20 20:31 Order name: Quantitative Hcg; Complete Time: 21:44 kb 10/20 20:31 Order name: Abo/rh Typing; Complete Time: 21:44 kb 10/20 20:31 Order name: Basic Metabolic Panel; Complete Time: 21:44 kb 10/20 20:31 Order name: CBC with Diff; Complete Time: 21:18 kb 10/20 21:06 Order name: Urine Dipstick--Ancillary (enter results); Complete Time: 21:44 kb 10/20 21:06 Order name: Urine --Ancillary (enter results); Complete Time: 21:44 kb 08 20:31 Order name: Urine Test (obtain specimen); Complete Time: 21:10 kb 10/20 20:31 Order name: IV Saline Lock; Complete Time: 21:10 kb 08 20:31 Order name: Labs collected and sent; Complete Time: 21:10 kb 10/20 20:31 Order name: NPO; Complete Time: 20:34 kb 10/20 20:31 Order name: Urine Dipstick-Ancillary (obtain specimen); Complete Time: 21:10 kb 10/20 21:45 Order name: US Transvaginal Ob kb Administered Medications: No medications were administered Disposition: 10/21 02:07 Co-signature as Attending Physician, Efe Martinez MD. rn Disposition: 10/20/18 22:10 Discharged to Home. Impression: Threatened . - Condition is Stable. - Discharge Instructions: Vaginal Bleeding During , First Trimester, Threatened Miscarriage, Iegg-am-Vtgm, Pelvic Rest. - Medication Reconciliation Form, Thank You Letter, Antibiotic Education, Prescription Opioid Use form. - Follow up: Emergency Department; When: As needed; Reason: Worsening of condition. Follow up: Private Physician; When: 2 - 3 days; Reason: Recheck today's complaints, Continuance of care, Re-evaluation by your physician. Signatures: Dispatcher [employer] EDWV Ericka Rodriguez, YARA-C PHLEBOTOMIST-Krysta Gibbs RN RN aj1 Efe Martinez MD MD rn Bryson, James, RN RN jb4 Corrections: (The following items were deleted from the chart) 10/20 22:25 22:10 10/20/2018 22:10 Discharged to Home. Impression: Threatened . Condition jb4 is Stable. Forms are Medication Reconciliation Form, Thank You Letter, Antibiotic Education, Prescription Opioid Use. Follow up: Emergency Department; When: As needed; Reason: Worsening of condition. Follow up: Private Physician; When: 2 - 3 days; Reason: Recheck today's complaints, Continuance of care, Re-evaluation by your physician. kb
--- NOTE | 2018-10-20 22:11 | ER ---
Nurse's Notes [facility] Name: Gabby Aguilar Age: 33 yrs Sex: Female : 1985 Arrival Date: 10/20/2018 Time: 19:56 Bed 13 Private MD: Diagnosis: Threatened Presentation: 10/20 20:02 Presenting complaint: Patient states: "I have some cramping and some vaginal bleeding aj1 that started this afternoon around 1, it was very light but now its darker, but its still just when I wipe" Patient reports that she is currently 5 weeks . Transition of care: patient was not received from another setting of care. Onset of symptoms was October 20, 2018. Risk Assessment: Do you want to hurt yourself or someone else? Patient reports no desire to harm self or others. Initial Sepsis Screen: Does the patient meet any 2 criteria? No. Patient's initial sepsis screen is negative. Does the patient have a suspected source of infection? No. Patient's initial sepsis screen is negative. Care prior to arrival: None. 20:02 Method Of Arrival: Ambulatory aj1 20:02 Acuity: MIKEL 3 aj1 Triage Assessment: 20:06 General: Appears in no apparent distress. comfortable, Behavior is calm, cooperative, aj1 appropriate for age. Pain: Complains of pain in right lower quadrant and left lower quadrant Pain currently is 7 out of 10 on a pain scale. Quality of pain is described as crampy. Neuro: Level of Consciousness is awake, alert, obeys commands. Cardiovascular: Patient's skin is warm and dry. Respiratory: Airway is patent Respiratory effort is even, unlabored, Respiratory pattern is regular, symmetrical. GI: Reports cramping. 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 - Social history:: Smoking status: Patient/guardian denies using tobacco. - Ebola Screening: : Patient denies travel to an Ebola-affected area in the 21 days before illness onset. Screenin:30 Abuse screen: Denies threats or abuse. Denies injuries from another. Nutritional aa1 screening: No deficits noted. Tuberculosis screening: No symptoms or risk factors identified. Fall Risk None identified. Assessment: 20:30 General: Appears in no apparent distress. comfortable, Behavior is calm, cooperative, aa1 appropriate for age. Pain: Denies pain. Neuro: Level of Consciousness is awake, alert, obeys commands, Oriented to person, place, time, situation, Moves all extremities. Full function Gait is steady, Speech is normal. Respiratory: Airway is patent Respiratory effort is even, unlabored, Respiratory pattern is regular, symmetrical. GI: Abdomen is non-distended, Bowel sounds present X 4 quads. Abd is soft and non tender X 4 quads. Reports cramping. : Urine is clear, Reports cramping, vaginal bleeding that is light flow, since yesterday. EENT: No signs and/or symptoms were reported regarding the EENT system. Derm: Skin is intact, is healthy with good turgor, Skin is pink, warm \\T\\ dry. Musculoskeletal: Capillary refill < 3 seconds. 21:11 Reassessment: Patient appears in no apparent distress at this time. Patient and/or aa1 family updated on plan of care and expected duration. Pain level reassessed. Patient is alert, oriented x 3, equal unlabored respirations, skin warm/dry/pink. Awaiting lab results. 22:24 Reassessment: Patient appears in no apparent distress at this time. Patient and/or jb4 family updated on plan of care and expected duration. Pain level reassessed. Patient is alert, oriented x 3, equal unlabored respirations, skin warm/dry/pink. PT verbalized understanding of D/c and follow up instructions, denies questions or concerns. Ambulated out of ED with significant other, steady gait. Vital Signs: 20:06 BP 162 / 88; Pulse 69; Resp 18; Temp 98.2; Pulse Ox 100% on R/A; Weight 94.8 kg (R); aj1 Height 5 ft. 3 in. (160.02 cm) (R); Pain 7/10; 21:11 BP 143 / 90; Pulse 61; Resp 16; Pulse Ox 100% on R/A; Pain 0/10; aa1 22:24 BP 132 / 81; Pulse 82; Resp 16; Pulse Ox 100% on R/A; jb4 20:06 Body Mass Index 37.02 (94.80 kg, 160.02 cm) aj1 ED Course: 19:56 Patient arrived in ED. cl3 20:04 Eric[facility]C [facility] kb 20:04 Efe Martinez MD is Attending Physician. kb 20:05 Triage completed. aj1 20:06 Arm band placed on. aj1 20:30 Patient has correct armband on for positive identification. Placed in gown. Bed in low aa1 position. Call light in reach. Pulse ox on. NIBP on. 20:30 Urine collected: clean catch specimen, clear. aa1 21:09 Idalmis Mcfadden, RN is Primary Nurse. aa1 21:10 Initial lab(s) drawn, by me, sent to lab. Inserted saline lock: 20 gauge in left aa1 antecubital area, using aseptic technique. Blood collected. 22:24 No provider procedures requiring assistance completed. IV discontinued, intact, jb4 bleeding controlled, No redness/swelling at site. Pressure dressing applied. 22:26 US Transvaginal Ob In Process Unspecified. EDMS Administered Medications: No medications were administered Outcome: 22:10 Discharge ordered by . kb 22:24 Discharged to home ambulatory, with significant other. jb4 22:24 Condition: stable 22:24 Discharge instructions given to patient, significant other, Instructed on discharge instructions, follow up and referral plans. Demonstrated understanding of instructions, follow-up care. 22:25 Patient left the ED. jb4 Signatures: Dispatcher [employer] EDMS Ericka Rodriguez FNP-C MOLDED FRAMES ASSEMBLER-CkKrysta Manuel, RN RN aj1 Idalmis Mcfadden, RN RN aa1 Alberto Greenberg RN RN jb4 Obey Hunter cl3 Corrections: (The following items were deleted from the chart) 20:05 20:02 Presenting complaint: Patient states: "I have some cramping and some vaginal aj1 bleeding that started this afternoon around 1, it was very light but now its darker, but its still just when I wipe" aj1
--- NOTE | 2018-10-21 08:38 | RAD REPORT ---
EXAM DESCRIPTION: US - Transvaginal OB - 10/20/2018 10:18 pm CLINICAL HISTORY: , abdominal cramping, vaginal bleeding, beta HCG 17. Preliminary findings provided at the time of the study. COMPARISON: None. TECHNIQUE: Endovaginal sonography performed. FINDINGS: Cervical canal is closed. No blood, fluid or other finding within the cervical canal. In t he endometrial cavity there is no gestational sac or sac remnant identifiable. No hematoma or other f ocal finding. Endometrium is up to 13 mm in thickness. Endometrium - myometrium interface is preserve d. No myometrial mass. No ovarian abnormality seen. No adnexal abnormality. No finding to suspect ect opic . No fluid or blood in the cul de sac. IMPRESSION: No intrauterine gestational sac, sac remnant or other focal abnormality. Endometrium is 13 mm in thickness. No ovarian or adnexal abnormality.
== END 2018-10-20 22:25 | disposition home or self-care (01) ==
LOC: ER 19:54
DX: O20.0 Threatened abortion (principal); Z3A.01 Less than 8 weeks gestation of pregnancy
CPT/HCPCS: 36415; 76817; 80048; 81003; 81025; 84702; 85025; 86900; 86901; 99284